=== PATIENT | female | born 1945 | race Native Hawaiian/Other Pacific Islander ===

== ENCOUNTER 2018-06-26 10:25 | Outpatient (CLI) | payer MEDICARE | END 2018-06-26 10:26 | disposition home or self-care (01) | LOC: C.MAMMO 10:25 | DX: Z12.31 Encounter for screening mammogram for malignant neoplasm of breast (principal); M81.0 Age-related osteoporosis without current pathological fracture; R07.9 Chest pain, unspecified ==